=== PATIENT | male | born 1950 | race Caucasian/White ===

== ENCOUNTER 2024-05-06 12:18 | Outpatient (CLI) | payer MEDICARE, SELFPAY ==
--- NOTE | ~2024-05-06 | PE_ITS ---
EXAMINATION: PET_PETPSMAST_PT DATE: 05/06/2024 15:01 INDICATION: Malignant neoplasm of prostate. TECHNIQUE: 5.326 mCi of Ga-68 gozetotide was administered intravenously. Low dose computed tomography (CT) images were acquired from the base of the brain to the proximal thighs for attenuation correcti on and anatomic localization. Automated exposure control was employed. Dose-length product (DLP) was 1010 mGy-cm. Positron emission tomography (PET) images were acquired in the same distribution. COMPARISON: None FINDINGS: Head/neck: There are no pathologically enlarged lymph nodes. Chest: Calcified pulmonary nodules and calcified hilar and mediastinal lymph nodes are consistent wit h old granulomatous disease. There is mild atelectasis bilaterally. No pleural effusion. The heart si ze is normal. There are coronary artery calcifications. No pericardial effusion. Abdomen/pelvis/proximal thighs: The liver and gallbladder are normal. Calcifications in the spleen ar e consistent with old granulomatous disease. The pancreas and adrenal glands are normal. There are cy sts in the kidneys measuring up to 3.7 cm on the left. There is a 7 mm stone in right kidney. There a re 5 mm and 2 mm stones in left kidney. The prostate is moderately enlarged. There is increased activ ity in the prostate predominantly on the left with maximum SUV of 32.7. There is diverticulosis of th e colon without evidence of diverticulitis. There are changes of appendectomy. There is a widemouthed umbilical hernia containing nonobstructed small bowel. There are no pathologically enlarged lymph no jessica. There is no free intraperitoneal fluid. There are changes of left inguinal hernia repair. There is no osseous malignancy. IMPRESSION: 1. Moderately enlarged prostate with increased activity, consistent with primary malignancy. No evide nce of metastatic disease. Reviewed, dictated and finalized at location A. IMPRESSION: 1. Moderately enlarged prostate with increased activity, consistent with primar y malignancy. No evidence of metastatic disease.
== END 2024-05-06 12:19 | disposition home or self-care (01) ==
PROVIDERS: Visit Provider Urology
DX: C61 Malignant neoplasm of prostate (principal)
CPT/HCPCS: 78815; A9596